=== PATIENT | female | born 1955 | race Hispanic/Latino ===

== ENCOUNTER 2020-09-16 08:22 | Emergency (ER) | payer MEDICARE, OTHER ==
[~2020-09-16] VITALS: Ht 162.6 cm; Wt 110.2 kg
[~2020-09-16 08:22] MED LIST: ADVAIR 500/501 EA INH; AMLODIPINE BESY10 MG PO; FUROSEMIDE40 MG PO; GABAPENTIN300 MG PO; NAPROXEN250 MG PO; VASOTEC10 MG PO
[2020-09-16 09:05] LABS: BASOPHILS % 0.4 % (0.0-1.0); EOSINOPHILS % 0.4 % (0.0-6.0); HEMATOCRIT 39.6 % (34.2-44.1); HEMOGLOBIN 13.2 g/dL (12.0-16.0); LYMPHOCYTES % 20.5 % (18.0-39.1); MEAN CORPUSCULAR HEMOGLOBIN 30.3 pg (28-32); MEAN CORPUSCULAR HGB CONC 33.3 g/dL (31-35); MONOCYTES # (AUTO) 0.2 (0.2-0.8); MONOCYTES % 4.4 % (4.4-11.3); NEUTROPHILS # (AUTO) 3.5 (2.1-6.9); NEUTROPHILS % 73.9 % (38.7-80.0); PLATELET COUNT 117 x10e3/uL (140-360); RED BLOOD COUNT 4.35 x10e6/uL (3.6-5.1); RED CELL DISTRIBUTION WIDTH 13.3 % (11.7-14.4)
[2020-09-16] MEDS ORDERED: ACETAMINOPHEN 325 MG TAB PO ONE (09:15)
[2020-09-16 09:26] LABS: ALANINE AMINOTRANSFERASE 44 IU/L (0-55); ALBUMIN 3.4 g/dL (3.5-5.0); ALKALINE PHOSPHATASE 98 IU/L (40-150); ANION GAP 15.3 mmol/L (8-16); BLOOD UREA NITROGEN 9 mg/dL (7-26); BUN/CREATININE RATIO 14 (6-25); CARBON DIOXIDE 22 mmol/L (22-29); CHLORIDE 109 mmol/L (98-107); CREATINE KINASE 77 IU/L (29-168); CREATININE, SERUM 0.65 mg/dL (0.57-1.11); EST GLOMERULAR FILTRATION RATE > 60 ML/MIN (60-); GLUCOSE 118 mg/dL (74-118); POTASSIUM 3.3 mmol/L (3.5-5.1); SODIUM 143 mmol/L (136-145)
[2020-09-16] MEDS ORDERED: IOPAMIDOL 370 MG/ML 200 ML INFUS..BTL INJ ONE (10:18)
[2020-09-16] MEDS ORDERED: SODIUM CHLORIDE 0.9% 50ML 50 ML ONE (10:18)
[2020-09-16] MEDS ORDERED: ACETAMINOPHEN/CODEINE 300MG - 30MG TAB PO ONE (11:15)
[2020-09-16] MEDS ORDERED: ZOFRAN4 MG SL (11:34)
[2020-09-16] MEDS ORDERED: TYLENOL # 31 EA PO (11:34)
[2020-09-16 12:15] VITALS: BP 140/87
== END 2020-09-16 12:19 | disposition home or self-care (01) ==
LOC: ER 08:35
DX: U07.1 COVID-19 (principal); R10.13 Epigastric pain; Z88.6 Allergy status to analgesic agent
CPT/HCPCS: 36415; 74177; 80053; 82550; 82553; 83690; 84484; 85025; 99284; Q9967; U0002

== ENCOUNTER → 2021-03-20 | Outpatient (CLI) | payer MEDICARE ==
[~2021-03-20] MED LIST changes: +TYLENOL # 31 EA PO; +ZOFRAN4 MG SL
== END ==
LOC: NM 08:20
PROVIDERS: ATTEND Radiology Body Imaging
DX: C64.9 Malignant neoplasm of unspecified kidney, except renal pelvis (principal); M54.5 Low back pain; M54.6 Pain in thoracic spine
CPT/HCPCS: 78306; A9503; A9570

== ENCOUNTER → 2021-07-05 | Outpatient (CLI) | payer MEDICARE | LOC: NM 12:06 | PROVIDERS: ATTEND Radiology Body Imaging | DX: C64.9 Malignant neoplasm of unspecified kidney, except renal pelvis (principal); M54.50 Low back pain, unspecified | CPT/HCPCS: 78306; A9503 ==